=== PATIENT | female | born 2000 | race Caucasian/White ===

== ENCOUNTER 2020-03-03 21:46 | Emergency (ER) | payer OTHER ==
[~2020-03-03] VITALS: Ht 160 cm; Wt 54.4 kg
[~2020-03-03 21:46] MED LIST: BCP
[2020-03-03] MEDS ORDERED: PREDNISOLONE ACE5 ML LT. EYE (23:26)
[2020-03-03] MEDS ORDERED: PREDNISONE50 MG PO (23:26)
[2020-03-03 23:36] VITALS: BP 115/72
== END 2020-03-03 23:36 | disposition home or self-care (01) ==
LOC: M.ERS 21:46
DX: T78.40XA Allergy, unspecified, initial encounter (principal); J45.909 Unspecified asthma, uncomplicated; Z88.0 Allergy status to penicillin; Z88.1 Allergy status to other antibiotic agents; X58.XXXA Exposure to other specified factors, initial encounter

== ENCOUNTER 2020-03-07 23:34 | Emergency (ER) | payer OTHER ==
[~2020-03-07] VITALS: Ht 160 cm; Wt 54.4 kg
[~2020-03-07 23:34] MED LIST changes: +PREDNISOLONE ACE5 ML LT. EYE; +PREDNISONE50 MG PO
[2020-03-08 00:40] VITALS: BP 123/88
== END 2020-03-08 00:40 | disposition home or self-care (01) ==
LOC: M.ERS 23:34
DX: F41.0 Panic disorder [episodic paroxysmal anxiety] (principal); J45.909 Unspecified asthma, uncomplicated; Z88.0 Allergy status to penicillin; Z88.1 Allergy status to other antibiotic agents